=== PATIENT | female | born 1990 | race Caucasian/White ===

== ENCOUNTER 2020-08-27 11:34 | Emergency (ER) | payer BC ==
[~2020-08-27] VITALS: Ht 172.7 cm; Wt 78.0 kg
[2020-08-27] MEDS ORDERED: TETRACAINE 0.5% OPHTH DROPS 4ML RIGHTEYE ONE (12:45)
[2020-08-27] MEDS ORDERED: FLUORESCEIN SODIUM 1MG/STRIP RIGHTEYE ONE (12:45)
[2020-08-27 13:09] VITALS: BP 121/75
== END 2020-08-27 13:10 | disposition home or self-care (01) ==
LOC: ER 11:34
DX: T15.91XA Foreign body on external eye, part unspecified, right eye, initial encounter (principal); R03.0 Elevated blood-pressure reading, without diagnosis of hypertension; S00.251A Superficial foreign body of right eyelid and periocular area, initial encounter; Y93.89 Activity, other specified; Y92.89 Other specified places as the place of occurrence of the external cause
CPT/HCPCS: 99281